=== PATIENT | male | born 1955 | race Caucasian/White ===

== ENCOUNTER 2022-07-25 08:00 | Outpatient (NON) | payer MEDICARE, OTHER, SELFPAY | END 2022-07-25 08:01 | disposition home or self-care (01) | LOC: ANHLAB 07-26 14:22 | PROVIDERS: PCP Family Medicine Adolescent Medicine; Visit Provider Nurse Practitioner | DX: D23.71 Other benign neoplasm of skin of right lower limb, including hip (principal); L81.4 Other melanin hyperpigmentation; D22.62 Melanocytic nevi of left upper limb, including shoulder | CPT/HCPCS: 88305; 88342 ==

== ENCOUNTER 2022-08-02 07:00 | Outpatient (NON) | payer MEDICARE, OTHER, SELFPAY | END 2022-08-02 07:01 | disposition home or self-care (01) | LOC: ANHLAB 16:13 | PROVIDERS: PCP Family Medicine Adolescent Medicine; Visit Provider Nurse Practitioner | DX: L72.8 Other follicular cysts of the skin and subcutaneous tissue (principal); L81.4 Other melanin hyperpigmentation | CPT/HCPCS: 88305 ==

== ENCOUNTER 2023-06-05 10:26 | Emergency (ER) | payer MEDICARE, OTHER, SELFPAY ==
[2023-06-05 10:32] VITALS: BP 155/100; PULSE 95; RESP 18; TEMP 36.7; O2SAT 100
--- NOTE | 2023-06-05 10:42 | ED.SKABFB ---
HPI - Skin/Abscess/Foreign Bdy General Chief complaint: Skin/Abscess/Foreign Body Stated complaint: Skin Problem Source: patient and RN notes reviewed History of Present Illness HPI narrative: 68 yo M presents to urgent care with complaints of a rash to his bilateral arms and sides of feet x 2 weeks. Pt states he thinks it started on his right hand. Pt states it doesn't itch until he touches it. Pt denies any known contact with poison loreto or something of the like. Denies any fevers, chills, vomiting, chest pain, SOB, or other symptoms. Pt has tried using Cortisone cream and topical Benadryl with minimal relief. Related Data Allergies Allergy/AdvReac Type Severity Reaction Status Date / Time No Known Allergies Allergy Mild Unverified 06/05/23 10:37 Review of Systems Review of Systems: CONSTITUTIONAL: Denies fever, chills, or sweats. EYES: Denies visual changes, redness, or discharge. ENT: Denies otalgia and sore throat CARDIOVASCULAR: Denies chest pain, palpitations, or edema. RESPIRATORY: Denies cough or dyspnea. GASTROINTESTINAL: Denies abdominal pain, nausea, vomiting, or diarrhea. GENITOURINARY: Denies dysuria or hematuria. SKIN: Itchy rash MUSCULOSKELETAL: Denies back pain, joint pain, or myalgia. NEUROLOGIC: Denies headache, numbness, or weakness. Pertinent positives per HPI. PMFSH Comments At the time of my signature, I reviewed and agree with the nursing past medical, surgical, social, and family history. There is no relevant family history pertinent to the patient complaint. Exam Narrative: GENERAL: This is a well-nourished, well-developed patient, in no apparent distress. HEAD: normocephalic, atraumatic. EYES: Sclera clear/white. Vision is grossly intact. EARS: External ears normal, auditory canals clear and without drainage. Hearing grossly intact. NOSE: External nose normal with no obvious nasal discharge, nares without redness, no rhinorrhea. THROAT: Mucous membranes moist, posterior pharynx clear. NECK: Neck supple, non-tender without lymphadenopathy, masses or thyromegaly. CARDIOVASCULAR: Regular rate and rhythm without murmurs, gallops, or rubs. RESPIRATORY: Clear to auscultation. Breath sounds equal bilaterally. No wheezes, rales, or rhonchi. GASTROINTESTINAL: Abdomen soft, non-tender, nondistended. Bowel sounds are active. No hepato-splenomegaly, or palpable masses. No guarding. SKIN: light pink, dry, papules and patches to bilateral arms and hands. NEURO: awake, alert, and oriented to person, place and time. There were no obvious focal neurologic abnormalities. EXTREMITIES: No clubbing, cyanosis, or edema. No joint tenderness, effusion, or edema noted. BACK: Nontender without deformity or crepitus. No flank tenderness. Course Course Level of Care: Express Care Visit Vital Signs Vital signs: Vital Signs Temperature 98.1 F 06/05/23 10:32 Pulse Rate 95 06/05/23 10:32 Respiratory Rate 18 06/05/23 10:32 Blood Pressure 155/100 H 06/05/23 10:32 Pulse Oximetry 100 06/05/23 10:32 Oxygen Delivery Room Air 06/05/23 10:32 Temperature 98.1 F 06/05/23 10:32 Pulse Rate 95 06/05/23 10:32 Respiratory Rate 18 06/05/23 10:32 Blood Pressure 155/100 H 06/05/23 10:32 Pulse Oximetry 100 06/05/23 10:32 Oxygen Delivery Room Air 06/05/23 10:32 reviewed Discharge Plan Discharge Clinical Impression: Dermatitis Patient Disposition: Home, Self-Care Condition: Stable Instructions: Dermatitis (ED) Additional Instructions: Take the steroid as directed. Apply the anti-fungal cream twice a day. Talk to your licensed therapist about possible oral anti-fungal medication if rash does not improve. Keep your appt with the tank car cleaner. Prescriptions: New methylprednisolone [Medrol (Jason)] 4 mg tablets,dose pack 4 mg PO .per dose pack Qty: 21 0RF clotrimazole 1 % cream 1 applic topical BID 14 Days Qty: 90 0RF Follow-up/Referrals: Billie Devi
== END 2023-06-05 10:54 | disposition home or self-care (01) ==
PROVIDERS: Emergency Provider Nurse Practitioner Family; PCP Family Medicine Adolescent Medicine
DX: L30.9 Dermatitis, unspecified (principal)
CPT/HCPCS: 99213; G0463

== ENCOUNTER 2023-07-27 15:46 | Outpatient (NON) | payer MEDICARE, OTHER, SELFPAY | END 2023-07-27 15:47 | disposition home or self-care (01) | LOC: ANHLAB 15:48 | PROVIDERS: PCP Family Medicine Adolescent Medicine; Visit Provider Nurse Practitioner | DX: C44.622 Squamous cell carcinoma of skin of right upper limb, including shoulder (principal) | CPT/HCPCS: 88305 ==